=== PATIENT | female | born 1980 | race Caucasian/White ===

== ENCOUNTER 2021-01-11 15:27 | Emergency (ER) | payer SELFPAY ==
[2021-01-11 15:36] VITALS: BMI 38.3
[2021-01-11] MEDS ORDERED: KETOROLAC TROMETHAMINE 30 MG/1 ML VIAL IVPUSH ONE (16:29)
[2021-01-11] MEDS ORDERED: KETOROLAC TROMETHAMINE 30 MG/1 ML VIAL ONE (16:50)
[2021-01-11 16:52] LABS: BASO % 0.9 % (0-2.0); EOS % 1.5 % (0-4.5); HEMATOCRIT 40.4 % (32.4-45.2); HEMOGLOBIN 13.6 GM/dL (10.7-15.3); LYMPH % 32.5 % (8-40); MCH 29.7 pg (25.7-33.7); MCHC 33.7 g/dl (32.0-36.0); MEAN PLT VOLUME 8.6 fl (7.5-11.1); MONO % 5.1 % (3.8-10.2); PLATELET COUNT 396 K/MM3 (134-434); RBC 4.59 M/mm3 (3.60-5.2); RDW 13.5 % (11.6-15.6); WHITE BLOOD COUNT 10.4 K/mm3 (4.0-10.0)
[2021-01-11 16:55] LABS: EPI CELLS 19 /uL (0-25.1); HYALINE CASTS 3 /uL (0-3.1); PH,URINE 6.5 (5.0-8.0); URINE APPEARANCE CLEAR; URINE BACTERIA >9,000 /uL (0-1359); URINE BILIRUBIN NEGATIVE (NEGATIVE); URINE COLOR YELLOW; URINE GLUCOSE (UA) 2+ (NEGATIVE); URINE KETONE TRACE (NEGATIVE); URINE LEUK ESTERASE NEGATIVE (NEGATIVE); URINE NITRITE POSITIVE (NEGATIVE); URINE PROTEIN TRACE (NEGATIVE); URINE RBC 31 /uL (0-23.9); URINE UROBILINOGEN 0.2 mg/dL (0.2-1.0); URINE WBC 24 /uL (0-25.8)
[2021-01-11 17:15] LABS: POTASSIUM 3.9 mmol/L (3.5-5.1)
[2021-01-11 17:17] LABS: CALCIUM 9.5 mg/dL (8.5-10.1)
[2021-01-11 17:18] LABS: ALBUMIN 3.7 g/dl (3.4-5.0); BLOOD UREA NITROGEN 11.7 mg/dL (7-18)
[2021-01-11 17:20] LABS: CREATININE 0.8 mg/dL (0.55-1.3)
[2021-01-11 17:22] LABS: BILIRUBIN,TOTAL 0.4 mg/dL (0.2-1)
[2021-01-11] MEDS ORDERED: CEFTRIAXONE 1 GM in DEXTROSE 5%-WATER - 100 ML IVPB ONE (17:42)
[2021-01-11] MEDS ORDERED: SODIUM CHLORIDE 1,000 ML IV STA (17:44)
[2021-01-11] MEDS ORDERED: CEFTRIAXONE 1 GM/50 ML BAG ONE (17:44)
[2021-01-11 21:16] VITALS: BP 136/78; PULSE 76; TEMP 98.5
== END 2021-01-11 21:16 | disposition home or self-care (01) ==
LOC: JER 15:27
PROC: 3E03329 Introduction of Other Anti-infective into Peripheral Vein, Percutaneous Approach (ICD-10-PCS; principal; 2021-01-11)
PROC: 3E0333Z Introduction of Anti-inflammatory into Peripheral Vein, Percutaneous Approach (ICD-10-PCS; 2021-01-11)
PROC: 3E0337Z Introduction of Electrolytic and Water Balance Substance into Peripheral Vein, Percutaneous Approach (ICD-10-PCS; 2021-01-11)
DX: N12 Tubulo-interstitial nephritis, not specified as acute or chronic (principal)
CPT/HCPCS: 36415; 74177-TC; 80053; 81003; 83690; 84703; 85025; 87086; 87186; 99285-25; C9803; Q9967; U0003

== ENCOUNTER 2022-08-24 12:30 | Emergency (ER) | payer OTHER ==
[2022-08-24 12:36] VITALS: BP 137/77; PULSE 77; RESP 18; TEMP 98.5; BMI 36.3
[2022-08-24] MEDS ORDERED: diazePAM 2 MG TABLET PO ONE (13:04)
[2022-08-24] MEDS ORDERED: KETOROLAC TROMETHAMINE 30 MG/1 ML VIAL IM ONE (13:04)
[2022-08-24] MEDS ORDERED: LIDOCAINE 5% TOPICAL PATCH TP ONE (13:05)
[2022-08-24] MEDS ORDERED: LIDOCAINE 5% TOPICAL PATCH ONE (13:14)
[2022-08-24] MEDS ORDERED: diazePAM 2 MG TABLET ONE (13:16)
[2022-08-24] MEDS ORDERED: KETOROLAC TROMETHAMINE 30 MG/1 ML VIAL ONE (13:16)
[2022-08-24] MEDS ORDERED: LIDOCAINE PATCH REMOVAL MC SCH (22:00)
== END 2022-08-24 13:23 | disposition home or self-care (01) ==
LOC: JERFT 12:30 → JER 12:30 → JERFT 13:23
PROC: 3E023GC Introduction of Other Therapeutic Substance into Muscle, Percutaneous Approach (ICD-10-PCS; principal; 2022-08-24)
DX: M54.42 Lumbago with sciatica, left side (principal)
CPT/HCPCS: 99284-25

== ENCOUNTER 2023-12-20 00:37 | Emergency (ER) | payer SELFPAY ==
[2023-12-20 00:46] VITALS: BP 139/89; PULSE 90; RESP 20; TEMP 97.3; BMI 27.6
== END 2023-12-20 03:31 | disposition home or self-care (01) ==
LOC: JER 00:37
DX: T18.5XXA Foreign body in anus and rectum, initial encounter (principal)
CPT/HCPCS: 72170-TC-FY; 84703; 99284-25